=== PATIENT | male | born 1960 | race African-American/Black ===

== ENCOUNTER 2016-09-24 13:16 | Emergency (ER) | payer MEDICAID ==
[~2016-09-24] VITALS: Ht 175.3 cm; Wt 78.0 kg
[2016-09-24] MEDS ORDERED: ACETAMINOPHEN 325MG TABLET PO ONE (14:45)
[2016-09-24 16:00] VITALS: BP 134/82
== END 2016-09-24 16:24 | disposition home or self-care (01) ==
LOC: ER 14:18
DX: S63.619A Unspecified sprain of unspecified finger, initial encounter (principal); S61.250A Open bite of right index finger without damage to nail, initial encounter; Y04.0XXA Assault by unarmed brawl or fight, initial encounter; Y04.1XXA Assault by human bite, initial encounter; Y92.89 Other specified places as the place of occurrence of the external cause; R03.0 Elevated blood-pressure reading, without diagnosis of hypertension; M19.041 Primary osteoarthritis, right hand; R07.9 Chest pain, unspecified; F17.210 Nicotine dependence, cigarettes, uncomplicated
CPT/HCPCS: 73130; 99284